=== PATIENT | female | born 1955 | race Hispanic/Latino ===

== ENCOUNTER 2022-07-19 15:01 | Emergency (ER) | payer MEDICARE ==
[~2022-07-19] VITALS: Ht 147.3 cm; Wt 63.5 kg
[2022-07-19 15:11] VITALS: BP 151/59
[2022-07-19] MEDS ORDERED: NAPR-1196 PO (16:40)
== END 2022-07-19 17:12 | disposition home or self-care (01) ==
LOC: EDH 15:01
DX: M93.921 Osteochondropathy, unspecified, right upper arm (principal); M79.7 Fibromyalgia; E78.00 Pure hypercholesterolemia, unspecified; I10 Essential (primary) hypertension; Z98.890 Other specified postprocedural states
CPT/HCPCS: 73030; 73080